=== PATIENT | male | born 1940 | race Caucasian/White ===

== ENCOUNTER → 2016-08-19 | Outpatient (CLI) | payer MEDICARE, OTHER ==
[~2016-08-19] MED LIST: ANTIVERT **IA12.5 MG PO; ASPIRIN LO-DOSE81 MG PO; ATIVAN 0.5MG0.5 MG PO; COLACE100 MG PO; CORDARONE,PACE200 MG PO; COREG6.25 MG PO; COZAAR50 MG PO; HYDROCHLOROTH12.5 MG; LASIX40 MG PO; LIPITOR40 MG PO; MILK OF MAGN400 ML PO; NITROGLYCERIN0.4 MG; NORVASC10 MG; OMEGA-31000 MG PO; PLAVIX75 MG PO; POTASSIUM CHLO20 ME1 PO; PRILOSEC20 MG PO; TYLENOL PM EX-1 EACH PO; TYLENOL325 MG PO; ULTRAM50 MG PO; VITAMIN D-32000 UNI1 PO
[2016-08-19 17:20] LABS: ANION GAP 16.4 (10.0-19.0); CALCIUM 9.1 mg/dL (8.5-10.5); CREATININE 1.3 mg/dL (0.6-1.3); MAGNESIUM 2.3 mg/dL (1.8-2.6); PHOSPHORUS 2.3 mg/dL (2.5-4.9); POTASSIUM 3.4 mMol/L (3.7-5.1)
== END | disposition disaster alternative care site (69) ==
LOC: LCNC 16:31
PROVIDERS: Internal Medicine Interventional Cardiology
DX: I49.3 Ventricular premature depolarization (principal)

== ENCOUNTER 2016-08-29 14:02 | Inpatient (IN) | payer MEDICARE, OTHER ==
[~2016-08-29] VITALS: Ht 170.2 cm; Wt 78.3 kg
--- NOTE | ~2016-08-29 | OR ---
PATIENT'S NAME: NATALIE LOUISE [facility] AGE: 76 Y [address] ROOM: [address] [address] LOCATION: GPCU ADMIT DATE: 08/29/2016 OR/Procedure Report DISCHARGE DATE: 09/05/2016 FAMILY PHYSICIAN: Arturo Saucedo MD ATTENDING PHYSICIAN: Nevaeh Mccollum SURGEON: Mike Hopkins DO CHECKER DUMP GROUNDS: DATE OF PROCEDURE: 09/01/2016 PREOPERATIVE DIAGNOSES: 1. Recent ST-segment elevation myocardial infarction, status post angioplasty of the right coronary artery. 2. Multivessel coronary artery disease. 3. Preoperatively existing coagulopathy secondary to anticoagulation therapy. POSTOPERATIVE DIAGNOSES: 1. Recent ST-segment elevation myocardial infarction, status post angioplasty of the right coronary artery. 2. Multivessel coronary artery disease. 3. Preoperatively existing coagulopathy secondary to anticoagulation therapy. PROCEDURE PERFORMED: Coronary artery bypass grafting x3 with reverse saphenous vein graft to the posterior descending artery, reverse saphenous vein graft to the obtuse marginal artery, and a left internal mammary artery bypass to the left anterior descending artery. BRIEF HISTORY: Mr. Louise is a 76-year-old white male who was admitted through the ER on 08/[address]-segment myocardial infarction. He was taken as code STEMI to the landscape laborer where his right coronary artery was intervened upon. However, secondary to the marked tortuosity of the vessel and calcification, only an angioplasty could be performed. Given that this same scenario happened 2 times previously including June of this year, we have been asked to see him in regard to revascularization. Catheterization has also shown moderately severe LAD disease approximately 60% to 70% and obtuse marginal with the same percentage. DESCRIPTION OF PROCEDURE: Informed consent has been obtained, and he has been brought to the operative suite today, sterilely prepped and draped in the usual fashion for median sternotomy along with lower extremity vein harvest. A sternal incision was made, and the sternum was divided in the midline with a sternal saw. Ostene and electrocautery were used for hemostasis along the marrow and sternal edges, and concurrently to this, the saphenous vein was harvested endoscopically from the lower extremity. A sternal retractor was PATIENT'S NAME: NATALIE LOUISE [facility] AGE: 76 Y [address] ROOM: [address] [place], [place] [address] LOCATION: GPCU ADMIT DATE: 08/29/2016 OR/Procedure Report DISCHARGE DATE: 09/05/2016 FAMILY PHYSICIAN: Arturo Saucedo MD ATTENDING PHYSICIAN: Nevaeh Mccollum placed, and the pericardium was opened. We had initially hoped to do bilateral internal mammary artery harvest given the somewhat mid proximal stenosis in the right coronary artery; however, the artery was completely calcified onto the inferior diaphragmatic surface of the heart, and I did not feel that as an in situ graft the CANDELARIA would reach. Therefore, the sternal retractor was removed, mammary retractor was placed, and the left internal mammary artery was harvested in standard fashion. Prior to its division, the patient was fully heparinized. The mammary was then divided and prepared for bypass. Mammary retractor was removed, and a sternal retractor was placed. Pericardium was opened, pericardial well was created, and cannulation sutures were placed in the ascending aorta and right atrium for bypass and cardioplegia cannulas. The patient was then cannulated and connected to the bypass pump without difficulty. The vein was then prepared for bypass. Cardiopulmonary bypass was initiated, and a crossclamp was applied. Antegrade and retrograde cardioplegia was given along with topical cold saline for cardiac arrest, and the heart arrested without difficulty. The right coronary artery had been previously identified, and we went on to the surface of the posterior descending artery where this artery was free of significant calcification. It was opened here and end-to-side vein graft anastomosed to this with 7-0 Prolene. It was sized appropriately and connected to cardioplegia system, and 500 mL of vein graft and retrograde cardioplegia was given. This was done after each venous distal anastomosis. A similar venous distal anastomosis was then created to the obtuse marginal, and then the left internal mammary artery was anastomosed to the left anterior descending artery again in end-to-side fashion with 7-0 Prolene. With this complete, the bulldog was removed from the internal mammary artery showing good distal flow into the left anterior descending artery as well as an intact anastomosis. The crossclamp was now removed, and a partial occlusion clamp was applied. Warm blood was initiated via the vein grafts and the retrograde cannula. The bulldog had been removed from the LAD, and distal flow was going. Spontaneous sinus rhythm returned. Our proximal anastomoses were then completed with 4-0 punch and 6-0 Prolene. When this was completed, the partial occlusion clamp was removed, the vein grafts de-aired, bulldog was removed, and distal flow was given. Warm blood was now discontinued, and the retrograde cannula was removed. Distal sites were hemostatic. Proximal sites were hemostatic. Ventilations were initiated, and we weaned from cardiopulmonary bypass without difficulty. The venous cannula was now removed, and appropriate volume returned from the pump to the patient. The ascending aortic cannula was now removed, and protamine was given. Two atrial and one ventricular temporary pacemaking wires were placed. Three chest tubes, one left pleural, one posterior pericardial, and one anterior mediastinal were placed, and the sternum was approximated with sternal cable system. All sponge, instrument, and needle counts were correct, and the patient was transferred to the intensive care unit in stable condition. PATIENT'S NAME: NATALIE LOUISE [facility] AGE: 76 Y [address] ROOM: [place] [address] LOCATION: GPCU ADMIT DATE: 08/29/2016 OR/Procedure Report DISCHARGE DATE: 09/05/2016 FAMILY PHYSICIAN: Arturo Saucedo MD ATTENDING PHYSICIAN: Nevaeh Mccollum MIKE HOPKINS DO MCB/modl /[id number] CC: Nevaeh Mccollum MD d: 09/13/16 1431 t: 09/15/16 1515, OPERATIVE SUMMARY
--- NOTE | ~2016-08-29 | HP ---
PATIENT'S NAME: NATALIE LOUISE [facility] AGE: 76 Y [address] ROOM: [place] [address] LOCATION: GICU ADMIT DATE: 08/29/2016 History & Physical DISCHARGE DATE: FAMILY PHYSICIAN: MAYI BALTAZAR MD ATTENDING PHYSICIAN: Nevaeh Mccollum DATE OF SERVICE: 08/29/2016 This is a 76-year-old male patient of Dr. Muller. INDICATION: Acute inferior wall IA. HISTORY OF PRESENT ILLNESS: Mr. Louise is a 76-year-old male patient with known coronary artery disease. He has not had a history of an IA before. He had at least 4 stents according to him. His last catheterization in 2009 resulted in difficulty passing stents down his right coronary artery. Currently, he presents with 1 hour history of precordial chest pain, and an EKG in the emergency room that is consistent with acute inferior wall IA. He currently rates the pain at 4-5 on a scale of 1-10. He has had a similar pain about 2 weeks ago, and it spontaneously resolved. He has had a few other pains after that and had a monitor placed by Dr. Muller, who did not find anything significant on the monitoring. He has been in functional class II with no paroxysmal nocturnal dyspnea or orthopnea. He has occasional lightheadedness. He denies dizziness, syncope, or presyncope. He feels occasional skipped heartbeats, and he does have some ankle swelling. The patient has a history of hypertension and elevated cholesterol. He is not a diabetic and he quit smoking 40 years back. There is no family history of premature coronary artery disease. There is no prior history of IA. There is no prior history of congestive heart failure, rheumatic fever, heart murmur, or atrial fibrillation. MEDICATIONS: See list of medications. ALLERGIES: THE PATIENT HAS HAD SOME SKIN RASHES WITH CONTRAST. PAST MEDICAL HISTORY: History of spinal surgery. PATIENT'S NAME: NATALIE LOUISE [facility] AGE: 76 Y [address] ROOM: [place] [address] LOCATION: GICU ADMIT DATE: 08/29/2016 History & Physical DISCHARGE DATE: FAMILY PHYSICIAN: MAYI BALTAZAR MD ATTENDING PHYSICIAN: Nevaeh Mccollum SOCIAL HISTORY: He denies abusing alcohol. His appetite and weight are stable. Sleep is normal. FAMILY HISTORY: Positive for premature coronary artery disease. REVIEW OF SYSTEMS: A 12-point review of systems reveal corrective lenses and DJD. PHYSICAL EXAMINATION: VITAL SIGNS: On examination, his blood pressure is 120/80, heart rate is in the 80s and regular, respirations 18, afebrile. HEENT: Normal. NECK: Supple. No JVD, thyromegaly, lymphadenopathy, or carotid bruit. HEART: PMI is not well located. First and second heart sounds are regular. There are no added sounds or murmurs. CHEST: Clear to auscultation. ABDOMEN: Soft and nontender. EXTREMITIES: Reveal no edema. CENTRAL NERVOUS SYSTEM: Intact. ASSESSMENT: A 76-year-old male patient with hypertension, elevated cholesterol, and he is an ex-smoker. He has also family history of premature coronary artery disease. He presents with acute inferior wall myocardial infarction. RECOMMENDATIONS: Proceed with primary PTCA. MD RONNIE LAYTON/keynaa /[id number] D: [id number] T: 350 HISTORY & PHYSICAL
--- NOTE | ~2016-08-29 | HP ---
PATIENT'S NAME: NATALIE LOUISE [facility] AGE: 76 Y [address] ROOM: [place] [address] LOCATION: [facility] ADMIT DATE: 08/29/2016 History & Physical DISCHARGE DATE: FAMILY PHYSICIAN: MAYI BALTAZAR MD ATTENDING PHYSICIAN: Nevaeh Mccollum DATE OF SERVICE: CLINICAL UPDATE: Natalie Louise has been seen by me today, 09/01/2016. He was admitted a couple days ago with chest pain and has had an acute STEMI. He was taken to the builder's labourer and found to have a 90% lesion in his right coronary artery that could not be addressed with stent placement during his heart catheterization. It has been elected and he will proceed to the operating room later today for single- vessel coronary bypass graft per Dr. Mike Mccarthy. Dr. Mccarthy called me the day of the patient's admission. The patient was admitted, of course, to the intensive care unit. I reviewed the chart, told Dr. Mccarthy, I would follow along from social standpoint until this patient saw an acute need for cardiac services. I also explained that to the patient and his with the management of their case and treatment plan would be per the assistant golf coach and Dr. Mccarthy, and I would take over the care as things become less intense. ASSESSMENT: 1. Chest pain. 2. ST-segment elevation myocardial infarction. 3. Single-vessel coronary artery disease, critical. PLAN: As above. MAYI BALTAZAR MD SUPERVISOR CONTACT [employer]ENS/modl /[id number] D: [id number] T: HISTORY & PHYSICAL
--- NOTE | ~2016-08-29 | PUL ---
PATIENT'S NAME: NATALIE LOUISE [facility] AGE: 76 Y [address] ROOM: [place] [address] LOCATION: GICU ADMIT DATE: 08/29/2016 Pulmonary DISCHARGE DATE: FAMILY PHYSICIAN: MAYI BALTAZAR MD ATTENDING PHYSICIAN: Nevaeh Mccollum NAME OF PROCEDURE: Bedside Spirometry DATE OF PROCEDURE: August 29, 2016 TECH: VINNIE Quevedo REASON FOR EXAM: Pre-surgical evaluation RESULTS: FVC was 3.57 liters which is 96% of predicted and normal, FEV1 was 2.76 liters which is 103% of predicted and normal, and FEV1/FVC was 77.3% and normal. The flow volume curve did not reveal any significant airflow limitation. After bronchodilator administration FVC decreased to 3.08 liters and FEV1 decreased to 2.51 liters. FEV1/FVC was 81.8%. PHYSICIAN INTERPRETATION: The patient has no airflow limitation and no significant bronchodilator response. JAYSON CARRASQUILLO MD RFAylin/ks /[id number] dtt: 09/02/16 1023 , JAYSON CARRASQUILLO dtd: 09/02/16 0857
--- NOTE | ~2016-08-29 | CATH ---
Cardiac Diagnostic + PCI Report Demographics Patient Name ASPEN Vasquez Gender Male Date of 1940 Age 76 year(s) Patient Number [id number] Date of Study 08/29/2016 Visit Number [id number] Room Number G[address] [place] [id number] Ht 170.18 cm Wt 77.2 kg Referring Chun Primary Physician Physician Nevaeh CHÁVEZ Performing Chun Secondary Physician Physician Nevaeh CHÁVEZ Diagnostic Chun Assisting Physician Physician Nevaeh CHÁVEZ Interventional Chun Physician Colorist Photography Physician Nevaeh CHÁVEZ Findings and Conclusions Diagnostic Findings and Conclusion Acute inferior wall CT Diagnostic Recommendations PCI RCA Interventional Findings and Conclusion PTCA 3x15 mm balloon 90%-75% Due to tortuosity and really calcified RCA stent could not be advanced Interventional Recommendations Consult CTS in AM Procedure Description The patient was brought to the diagnostic cardiac catheterization-EP laboratory in the fasting, non-sedated state. Informed consent was obtained in the written and verbal form after the risks and benefits were explained. The patient had no further questions and agreed to proceed. The planned puncture-incision site(s) were shaved and prepped with ChloraPrep and draped in the usual sterile manner. Supplemental oxygen, and pain control medications were delivered by a registered nurse under physician guidance. Surface ECG rhythm, blood pressure measurement, and pulse oximetry were monitored throughout the procedure. Arterial access. The access site was infiltrated with lidocaine. The vessel was entered with the Seldinger technique. A sheath was advanced into the vessel and used for catheter placement. Selective left coronary angiography. A catheter was advanced into the left coronary vessel ostium under Fluoroscopic guidance. Contrast was injected by hand. Images were obtained in multiple projections. Selective right coronary angiography. A catheter was advanced into the right coronary vessel ostium under fluoroscopic guidance. Contrast was injected by hand. Images were obtained in multiple projections. Angioplasty: A guiding catheter was used to intubate the vessel. A 0.14 wire was used to cross the lesion. A balloon was positioned across the lesion and inflated. Post placement angiograms were performed. Arterial artery hemostasis was achieved. The patient was transferred to the ICU nursing floor via cart accompanied by a nurse. The patient left the laboratory in stable condition. Diagnostic Cath Status: Emergency Interventional Cath Status: Emergency Procedure Procedure Type Diagnostic procedure:Angiography:, Coronary Angios PCI procedure:Drug Eluting Coronary Stent:, RCA, Attempted, PTCA:, RCA Indications: Abnormal ECG. Angiographic Findings Dominance: Right Cardiac Arteries and Lesion Findings LMCA: Luminal irregularities LAD: LAD moderate diffuse disease Lesion on Prox LAD: Proximal subsection.20% stenosis . LCx: Circ moderate diffuse disease Lesion on Prox CX: Proximal subsection.20% stenosis . RCA: RCA large dominant. Heavily calcified. Mid to distal 90% post 70% with haziness. Lesion on Mid RCA: Mid subsection.90% stenosis 16 mm length reduced to 70%. Pre procedure CHAVO III flow was noted. Post Procedure CHAVO III flow was present. The guidewire cross was successful.The lesion was diagnosed as a high risk lesion.Culprit lesion. Devices used - Luge Wire .014 x 182. Number of passes: 1. - Luge Wire .014 x 182. Number of passes: 1. - Emerge Balloon 3.0 x 15. 1 inflation(s) to a max pressure of: 14 lucius. - Grand Slam Wire 0.14 x 180. Number of passes: 1. - Whisper Extra Support Wire .014 x 190. Number of passes: 1. - Whisper Extra Support Wire .014 x 190. Number of passes: 1. Coronary Tree Procedure Data Procedure Date Date: 08/29/2016Start: 02:27 PMEnd: 04:54 PM Entry Locations - Percutaneous access was performed through the Right Femoral artery (Primary location). A 7 Fr sheath was inserted. Hemostasis was successfully obtained using Suture. Closure Comments: Sheath sutured in place by Radha. Procedure Medications Order and Administration + + + + + !Time !Medication !Dosage !Route ! + + + + + !08/29/2016 02:27 PM !Solumedrol !125 mg !I.V. ! + + + + + !08/29/2016 02:27 PM !Benadryl !25 mg !I.V. ! + + + + + !08/29/2016 02:29 PM !Integrilin (ACC_7) !13.6 mg !I.V. bolus ! + + + + 08/29/2016 02:30 PM !Heparin (ACC_3) !8000 units !I.V. bolus ! + + + + + 08/29/2016 02:37 PM !Fentanyl !25 mcg !I.V. ! + + + + + !08/29/2016 02:39 PM !Integrilin (ACC_7) !13.6 mg !I.V. bolus ! + + + + + !08/29/2016 02:43 PM !Integrilin (ACC_7) !1 mcg/kg/min !I.V. bolus ! + + + + + !08/29/2016 02:53 PM !0.9% NaCl !125 ml !I.V. drip ! + + + + + 08/29/2016 03:42 PM !Heparin (ACC_3) !1000 units !I.V. bolus ! + + + + + 08/29/2016 04:11 PM !Fentanyl !25 mcg !I.V. ! + + + + + !08/29/2016 04:39 PM !Plavix (ACC_8) !300 mg !P.O. ! + + + + + Devices Used - A6 Fr. BS JL 4 Diag. Catheterwas used for:Left coronary angiography. - A6 Fr. BS JR 4 Diag. Catheterwas used for:Right coronary angiography. - A6 Fr. JR4 Guide Catheterwas used for:RCA Intervention. - A6 Fr. AL .75 JJ Guide Catheterwas used for:RCA Intervention. - A6 Fr. Guidlinerwas used for:RCA Intervention. - A6 Fr. AL1 Guide Catheterwas used for:RCA Intervention. - A7 Fr. AL1 Guide Catheterwas used for:RCA Intervention. - A6 Fr. Guidliner. Contrast Material - Isovue [id number] ml Fluoroscopy Time: Diagnostic: 53:42 minutes. Total: 53:42 minutes. Fluoroscopy Dose: Diagnostic: 5169 mGy. Total: 5169 mGy. Estimated Blood Loss: [address] [facility] PCI Information PCI Indication:Immediate PCI for STEMI. Medical History Performed Procedures and Imaging Results - No [facility] stress or imaging studies were performed. Allergies - Iodine. Risk Factors The patient risk factors include:prior PCI;hypercholesterolemia, hypertension, family history of premature CAD and dyslipidemia. Admission Data Admission Date: 08/29/2016 Admission Time: 02:17 PM Admit Source: Emergency department Insurance Payors: Medicare. Clinical Evaluation Leading to Procedure - The patient's CAD presentation was assessed as: STEMI. Hemodynamics Condition: Rest Estimated: Heart Rate: 71 bpm Pressures (mmHg) +-----+ + !Site !Pressure ! +-----+ + !AO !135/63 (92) ! +-----+ + Shunts Oxygen Values O2 Capacity 223.04 Signatures dtt: Nevaeh Mccollum dtd: 08/29/16 1427 Physician Self Edit
--- NOTE | ~2016-08-29 | CON ---
PATIENT'S NAME: NATALIE LOUISE [facility] AGE: 76 Y [address] ROOM: [address] [place] [address] LOCATION: GPCU ADMIT DATE: 08/29/2016 Consultation DISCHARGE DATE: FAMILY PHYSICIAN: MAYI BALTAZAR MD ATTENDING PHYSICIAN: Nevaeh Mccollum DATE OF CONSULTATION: 08/30/2016 REFERRING PHYSICIAN: Nevaeh Mccollum MD REASON FOR CONSULTATION: Coronary artery disease/inferior wall myocardial infarction. HISTORY OF PRESENT ILLNESS: The patient is a 76-year-old white male, a cardiology patient of Dr. Muller, with a previous history of coronary artery disease, who had been out golfing when he started to experience chest pain. He continued to golf for an additional hour and then excused himself and drove himself to the emergency department where he was found to be a code STEMI. The patient had previously been experiencing intermittent chest pain. This started approximately 2 weeks ago. He had been evaluated but because of the chest pain had not been identified. The patient was taken to the catheterization lab by Dr. Mccollum. There was an attempt to intervene to the RCA. The vessels were highly torturous and possibly calcific throughout. There was some remediation to the RCA which helped with the chest pain. Dr. Mccollum discussed surgical revascularization as a better option given the patient's vessels. The patient was therefore transferred to the progressive care floor for surgical consultation. The case was discussed with Dr. Muller as well. The patient had undergone an echocardiogram with findings of an ejection fraction at 60%. There was no valvular abnormalities identified. PAST MEDICAL HISTORY: ILLNESSES: Hypertension, coronary artery disease, dyslipidemia, osteoarthritis, and GERD. SURGERIES/PROCEDURES: Percutaneous intervention with stent, multiple cardiac catheterization, spine surgery with X-stop spacer placement to the lumbar spine and a tonsillectomy, also a colonoscopy. ALLERGIES: CONTRAST DYE WHICH CAUSES A RASH. 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 He is . He and his reside in [place]. The patient does not consume alcohol. He has a remote smoking history, approximately a pack a day habit but quit 35 years PATIENT'S NAME: NATALIE LOUISE [facility] AGE: 76 Y [address] ROOM: [id number] [place], [place] [address] [facility]ATION: [facility] ADMIT DATE: 08/29/2016 Consultation DISCHARGE DATE: FAMILY PHYSICIAN: MAYI BALTAZAR MD ATTENDING PHYSICIAN: Nevaeh Mccollum. FAMILY HISTORY: His father from a myocardial infarction at age 67. His mom from complications with valvular heart disease. He has a sister who had breast cancer. HOME MEDICATIONS: Include, 1. Tylenol p.m. two tablets q.h.s. p.r.n. insomnia. 2. Norvasc 10 mg daily. 3. Aspirin 81 mg at h.s. 4. Lipitor 20 mg at h.s. 5. Carvedilol 6.25 mg b.i.d. 6. Vitamin D3 2000 units daily. 7. Hydrochlorothiazide 12.5 mg daily. 8. Lorazepam 0.5 mg q.8 hours p.r.n. anxiety. 9. Cozaar 50 mg daily. 10. Nitroglycerin 0.4 mg subcu p.r.n. chest pain. 11. Shelley-3 fatty acids 1000 mg p.o. daily. 12. Omeprazole 20 mg daily. 13. Potassium chloride 20 mEq daily. SYSTEM REVIEW: GENERAL: The patient has not had any recent change in weight or appetite. No fever, chills, or sweats. No excessive fatigue. HEENT: Does have some age-related vision changes. Does wear glasses. No hearing complaints. No difficulty swallowing, change in voice, or hoarseness. RESPIRATORY: No unusual cough, wheezing, history of asthma. No complaints of PND, OTERO, or orthopnea. CARDIOVASCULAR: The patient did start having some unusual chest discomfort approximately 2 weeks ago. He did wear a monitor. There were no unusual findings. No complaints of palpitation. No intermittent claudication. He does have some occasional ankle edema. GI: No persistent nausea, vomiting, constipation, or diarrhea. Does have GERD and does take medication. : No voiding complaints. MUSCULOSKELETAL: The patient is highly active. He has generalized arthritis. He does not require ambulatory devices. NEUROLOGIC: No frequent or severe headaches. No history of seizure, memory loss, or syncope. He does occasionally experience some lightheadedness. PSYCHIATRIC: No psychiatric or psychiatric treatment history. ENDOCRINE: No history of diabetes or thyroid conditions. INTEGUMENT: No known skin diseases. PATIENT'S NAME: NATALIE LOUISE [facility] AGE: 76 Y [address] ROOM: [id number] [place], [place] [address] LOCATION: [facility] ADMIT DATE: 08/29/2016 Consultation DISCHARGE DATE: FAMILY PHYSICIAN: MAYI BALTAZAR MD ATTENDING PHYSICIAN: Nevaeh Mccollum PHYSICAL EXAMINATION: VITAL SIGNS: Blood pressure 141/76, pulse is 89, respirations 18, temp 97.9, O2 saturations 93%. His height is 170.18 cm and his weight is 77.40 kg. GENERAL: He is very pleasant. He is highly anxious. His is present for the consultation. HEENT: Normocephalic, atraumatic with EOMIs intact and conjunctivae clear. NECK: No palpable lymphadenopathy or thyromegaly. LUNGS: Clear to auscultation bilaterally. CARDIOVASCULAR: Regular rate and rhythm with no murmur detected. ABDOMEN: Soft, nontender by 4 quadrants with positive bowel sounds throughout. EXTREMITIES: No overt varicosities or edema. MUSCULOSKELETAL: Good range of motion of bilateral upper and lower extremities. NEUROLOGIC: Alert and oriented. Strength is symmetrical. SKIN: No suspicious skin lesions. LABORATORY AND TEST RESULTS: White blood cell count 14.3, hemoglobin 14.6, hematocrit 42.4, and platelets 225. Sodium 142, potassium 3.9, BUN 20, creatinine 1.4. Glucose is 142. Echo and cardiac catheterization are as per HPI. IMPRESSION: 1. Inferior wall myocardial infarction. 2. Coronary artery disease. 3. Hypertension and dyslipidemia. RECOMMENDATION AND PLAN: Dr. Hopkins reviewed the catheterization studies with the patient and his . Outlined were the culprit lesions and discussion for remediation. Risks and benefits of coronary artery bypass grafting surgery were discussed. Discussion of the risks includes, but were not limited to, bleeding, requiring transfusion or return to the operative suite, myocardial infarction, cerebrovascular accident, renal and/or pulmonary failure. Also discussed were arrhythmias and infection as well as operative and postoperative mortality. Dr. Hopkins did discuss, perhaps if possible, utilizing the CANDELARIA to the RCA and does expect to use the REAGAN to the LAD and a saphenous vein graft to the obtuse marginal, for a total of three vessel bypass. The patient does consent to the procedure. Does have a lot of concerns about the recovery period thereafter. Length of stay and restrictions following the surgery were discussed as well. The patient does consent to surgery and we will plan for a preoperative evaluation tomorrow morning with this surgery to be performed on September 01, 2016. We would like to thank Dr. Mccollum and Dr. Muller for allowing us to participate in the care of this very pleasant gentleman. PATIENT'S NAME: NATALIE LOUISE [facility] AGE: 76 Y [address] ROOM: [place] [address] LOC[facility]: [facility] ADMIT DATE: 08/29/2016 Consultation DISCHARGE DATE: FAMILY PHYSICIAN: MAYI BALTAZAR MD ATTENDING PHYSICIAN: Nevaeh Mccollum LISA OTERO APRN FOR RIA HOPKINS DO DLQ/felecial /[id number] d: 08/31/16 1332 t: 09/12/16 1324, CONSULTATION REPORT
--- NOTE | ~2016-08-29 | ECHO ---
Transthoracic Echocardiography Report (TTE) Demographics Patient Name NATALIE LOUISE Date of Study 08/30/2016 Patient Number [id number] Visit Number [id number] Date of 1940 Room Number G6204 Gender Male Number Age 76 year(s) Referring Chun Herring Crop Consultant Saúl Anton RDCS, Physician RVT Lewis Vasquez MD Physician Interpreting Chun Herring Spin Table Operator Physician Supervising Ordering Chun Herring MD/MLP Physician Nurse Stress Fisher Clam Conclusions Contractility Score Summary Normal Left Ventricular contractility was noted. Summary The estimated left ventricular ejection fraction is 60% with normal internal dimension and EF.WMAs cannot be confidently commented on. No significant valvular abnormalities. TDS. Procedure Type of Study TTE procedure:2D Echocardiogram. Procedure Date Date: 08/30/2016 Start: 10:30 AM Study Location: Inpatient Portable Technical Quality: Adequate visualization Indications:Myocardial infarction. Appropriate Use Criteria: 9 Patient Status: Routine BP: 146/74 mmHg Allergies - Iodine. M-Mode/2D Measurements LV Diastolic Dimension: 4.31 cm LV Systolic Dimension: 2.04 cm LV Septum Diastolic: 0.85 cm LV PW Diastolic: 0.85 cm LA Dimension: 3 cm RV Diastolic Dimension: 2.72 cm LA volume: 40 ml LVOT: 2.1 cm RV Base: 2.91 cm LVOT VTI: 27.4 cm RV Mid: 2.63 cm LV Stroke volume: 94.85 ml TAPSE: 2.71 cm TDI-S': 14.4 cm/s Doppler Measurements AV Peak Velocity: 1.39 m/s MV Peak E-Wave: 0.71 m/s AV Peak Gradient: 7.73 mmHg MV Peak A-Wave: 0.88 m/s AV Mean Gradient: 5 mmHg MV E/A Ratio: 0.81 LVOT Peak Velocity: 1.15 m/s MV P1/2t: 111 msec Estimated RAP:5 mmHg E' Septal Velocity: 0.06 m/s A' Septal Velocity: 0.14 m/s E' Lateral Velocity: 0.1 m/s A' Lateral Velocity: 0.16 m/s Findings Left Ventricle The left ventricle is normal in size.Normal EF.WMAs cannot be confidently commented on.LV internal dimension is normal. Diastolic assessment reveals Grade I diastolic dysfunction. Right Ventricle Normal right ventricle structure and function. Left Atrium Normal left atrial size. Right Atrium Normal right atrial size. Mitral Valve Normal mitral valve structure and function. Aortic Valve Normal aortic valve structure and function. Tricuspid Valve Normal tricuspid valve structure and function. Pulmonic Valve The pulmonic valve is not well visualized. Pericardial Effusion No evidence of pericardial effusion. Miscellaneous Visualized portions of the aortic root and ascending aorta appear normal in size. Pleural Effusion No evidence of pleural effusion. Contractility Score LV regional wall motion:(0-Non visualized 1-Normal 2-Hypokinesis 3-Akinesis 4-Dyskinesis 5-Aneurysm) Signature dtt: Nevaeh Mccollum dtd: 08/30/16 1030 Physician Self Edit
--- NOTE | ~2016-08-29 | OR ---
PATIENT'S NAME: NATALIE LOUISE [facility] AGE: 76 Y [address] ROOM: [place] [address] LOCATION: GICU ADMIT DATE: 08/29/2016 OR/Procedure Report DISCHARGE DATE: FAMILY PHYSICIAN: MAYI BALTAZAR MD ATTENDING PHYSICIAN: Nevaeh Mccollum SURGEON: Pranay José MD MIXED CROP AND LIVESTOCK FARM WORKER: None. DATE OF PROCEDURE: 09/01/2016 PROCEDURE: Intraoperative transesophageal echocardiogram. INDICATIONS FOR PROCEDURE: Need for visualization of cardiac structures and function prior to and immediately post coronary artery bypass grafting. PREOPERATIVE DIAGNOSES: 1. Multivessel coronary artery disease. 2. Hypertension. 3. Hyperlipidemia. 4. Remote history of tobacco use. POSTOPERATIVE DIAGNOSES: 1. Multivessel coronary artery disease. 2. Hypertension. 3. Hyperlipidemia. 4. Remote history of tobacco use. COMPLICATIONS: None noted. ESTIMATED BLOOD LOSS: Minimal. CONSENT: Informed consent was obtained preoperatively including discussed risks, benefits, and alternatives. Mr. Louise stated his understanding the above procedures risks, benefits, and alternatives and agreed for me to proceed. PROCEDURE IN DETAIL: After induction of anesthesia, the patient placed in supine position. Orogastric tube placed without difficulty through the patient's mouth, posterior pharynx, esophagus, and stomach. Suction and removed. No blood noted. An iE33 Edson transesophageal echocardiogram probe was then inserted through the patient's mouth, posterior pharynx, esophagus, and stomach without difficulty. Please see saved images for further analysis. Prebypass views do illustrate trileaflet aortic valve with mild aortic sclerosis. There is no aortic insufficiency identified. Aortic valve via the PATIENT'S NAME: NATALIE LOUISE [facility] AGE: 76 Y [address] ROOM: [place] [address] LOCATION: GICU ADMIT DATE: 08/29/2016 OR/Procedure Report DISCHARGE DATE: FAMILY PHYSICIAN: MAYI BALTAZAR MD ATTENDING PHYSICIAN: Nevaeh Mccollum continuity equation measures 3.26 cm2. The patient's ascending aorta maximally measures 3.7 cm. The patient has no interatrial shunt lesions noted via both Doppler and agitated saline study. No pulmonary valve insufficiency noted. There is trace tricuspid valve insufficiency noted. Right ventricular function appears to be normal. Left ventricular ejection fraction is 55%. No regional wall motion abnormalities are identified. Left atrial appendage is without thrombus. The patient does have moderate mitral regurgitation. There is grade 4 of the ascending aorta and grade 4 atheromatous disease of the descending aorta. There is no mobile plaques noted in either the ascending or descending aorta. There is trace pericardial effusion noted. Post bypass views do illustrate more hyperdynamic left ventricle and right ventricle. Left ventricular ejection fraction is approximately 65% to 70%. No regional wall motion abnormalities identified. Valvular function looks unchanged without a change in stenosis or regurgitation of any valve. There is to be a laminar flow above the ascending aorta. Atheromas disease does not appear to be changed to either postoperatively. There was no systolic anterior motion of mitral valve leaflet identified. At the end of the procedure, iE33 transesophageal echocardiogram probe was removed without difficulty. No blood noted on the probe in the patient's mouth. PRANAY JOSÉ MD RRS/modl /[id number] d: 09/01/16 1436 t: 09/02/16 1415, OPERATIVE SUMMARY
--- NOTE | ~2016-08-29 | ENPV ---
Vascular Lower Extremity Vein Mapping Procedure Demographics Patient Name NATALIE LOUISE Date of Study 08/31/2016 Patient Number [id number] Gender Male Date of 1940 Age 76 Visit Number [id number] Height 67 Accession Number [id number] Weight 170.2 Referring Chun Herring Interpreting Efraín Harrison MD Physician MD Physician Lewis Farias APRN Physician Ordering Physician Demarcus Farias Electrophysiology Technologist POST DOCTORAL FELLOW Deep Fryer Assembler Ninfa Pittman [facility] Conclusions Summary The right great saphenous vein was mapped an appears adequate for surgical use. The left great saphenous vein was mapped an appears adequate for surgical use from the groin to the knee. Procedure Type of Study: Veins:Lower Extremity Vein Mapping, Vein Mapping. Indications for Study:Pre-op CABG. Appropriate Use Criteria:9 Allergies - Iodine. Patient Status:Routine. Study Location:Inpatient Portable. Technical Quality:Adequate visualization. Risk Factors - The patient's risk factor(s) include: dyslipidemia and arterial hypertension. Signature dtt: SONIYA AGUILAR dtd: 08/31/16 1506 Physician Self Edit
--- NOTE | ~2016-08-29 | OR ---
PATIENT'S NAME: NATALIE LOUISE [facility] AGE: 76 Y [address] ROOM: [place] [address] LOCATION: GICU ADMIT DATE: 08/29/2016 OR/Procedure Report DISCHARGE DATE: FAMILY PHYSICIAN: MAYI BALTAZAR MD ATTENDING PHYSICIAN: Nevaeh Mccollum SURGEON: Wagner José MD FOURDRINIER MACHINE TENDER: Sunday Floyd RN. DATE OF PROCEDURE: 09/01/2016 PROCEDURES: 1. Left radial 20-gauge arterial line placement. 2. Right internal jugular central line, 9-Peruvian sheath placement. INDICATIONS FOR PROCEDURE: 1. Need for perioperative jyzr-dy-swlm blood pressure monitoring as well as frequent arterial blood gas analysis. 2. Need for central venous access for administration of fluid blood products central venous pressure monitoring. PREOPERATIVE DIAGNOSES: 1. Multivessel coronary artery disease with recent ST-elevation myocardial infarction. 2. Hypertension. 3. Hyperlipidemia. 4. Remote history of tobacco abuse. POSTOPERATIVE DIAGNOSES: 1. Multivessel coronary artery disease with recent ST-elevation myocardial infarction. 2. Hypertension. 3. Hyperlipidemia. 4. Remote history of tobacco abuse. COMPLICATIONS: None noted. ESTIMATED BLOOD LOSS: Minimal. CONSENT: Informed consent was obtained preoperatively including discussed risks, benefits, and alternatives. The patient stated his understanding of the above procedures risks, benefits, alternatives and agreed for me to proceed. DESCRIPTION OF PROCEDURE: In the preoperative area, the patient supine position right wrist supinated sterile prep with ChloraPrep 1% lidocaine subcutaneous tissues in a sterile fashion. Utilizing sterile technique, a 20- PATIENT'S NAME: NATALIE LOUISE [facility] AGE: 76 Y [address] ROOM: [place] [address] LOCATION: [facility] ADMIT DATE: 08/29/2016 OR/Procedure Report DISCHARGE DATE: FAMILY PHYSICIAN: MAYI BALTAZAR MD ATTENDING PHYSICIAN: Nevaeh Mccollum gauge Arrow catheter was used to cannulate the right radial artery, pulsatile blood flow a wire was advanced. However, hematoma was noted. Wire and needle removed intact. Pressure held. With unsuccessful cannulation of the right radial artery, the patient was taken the operating room in supine position. Left wrist supinated, sterile prep with ChloraPrep 1% lidocaine in the sterile fashion the subcutaneous tissues. Utilizing sterile technique, a 20-gauge arrow arterial catheter was used to cannulate the left radial artery on the first attempt under real-time ultrasound guidance. On the first attempt, pulsatile blood flow over a wire a 20-gauge Arrow catheter was inserted without difficulty. Wire and needle removed intact. Catheter de-aired and flushed with saline solution. Sterile occlusive Tegaderm dressing applied. Good correlation and noninvasive blood pressure monitoring. Patient tolerated the procedure well. Of note, the patient did have nitrous oxide and fentanyl sedation IV during the intraoperative radial arterial line placement. After induction of anesthesia, the patient placed in Trendelenburg position. Ultrasound for confirmation of right internal jugular venous anatomy. Sterile prep with ChloraPrep to right neck. Sterile full-body drape, sterile gown, sterile gloves used. Surgical mask and cap worn all time. Utilizing 16-gauge needle in a middle approach the right internal jugular vein was cannulated at first attempt without difficulty. Nonpulsatile blood flow. Dark blood aspirated over wire and a nine-Peruvian sheath was inserted 10 cm without difficulty. Wire and needle removed intact. Catheter sutured in place. Sterile occlusive Tegaderm dressing applied. MD MAY RAMAN/felecial /[id number] d: 09/01/16 1428 t: 09/02/16 1413, OPERATIVE SUMMARY
--- NOTE | ~2016-08-29 | ENPV ---
Carotid Duplex Study Demographics Patient Name NATAILE LOUISE Date of Study 08/31/2016 Patient Number [id number] Gender Male Date of 1940 Age 76 Visit Number [id number] Height 67 Accession Number [id number] Weight 170.2 Referring Chun Herring Natalia Harrison MD Physician MD Physician Lewis Farias APRN Physician Ordering Physician Demarcus Farias House Painter SAVANAH Cra Officer Ninfa Pittman [facility] Conclusions Summary The right internal carotid artery has mild, 1-39%, plaque and stenosis. The right vertebral artery is present with antegrade flow. The left internal carotid artery has mild, 1-39%, plaque and stenosis. The left vertebral artery is present with antegrade flow. Procedure Type of Study: Cerebral:Carotid, Carotid Doppler Bilateral. Indications for Study:Pre op heart valve surgery. Appropriate Use Criteria:9 Allergies - Iodine. Patient Status:Routine. Study Location:Inpatient Portable. Technical Quality:Adequate visualization. Risk Factors - The patient's risk factor(s) include: dyslipidemia and arterial hypertension. Velocities are measured in cm/s ; Diameters are measured in cm Carotid Right Measurements Carotid Left Measurements + +--------+--------+ + + + +--------+ --------+ + + !Location !PSV !EDV !Angle !%Stenosis ! !Location !PSV ! EDV !Angle !%Stenosis ! + +--------+--------+ + + + +--------+ --------+ + + !Prox CCA !78 !13 !44 ! ! !Prox CCA !93 ! 14 !60 ! ! + +--------+--------+ + + + +--------+ --------+ + + !Dist CCA !105 !21 !60 ! ! !Dist CCA !79 ! 17 !40 ! ! + +--------+--------+ + + + +--------+ --------+ + + !Prox ICA !90 !20 !44 ! ! !Prox ICA !74 ! !48 ! ! + +--------+--------+ + + + +--------+ --------+ + + !Mid ICA !84 !18 !44 ! ! !Mid ICA !80 ! 17 !48 ! ! + +--------+--------+ + + + +--------+ --------+ + + !Dist ICA !78 !16 !44 ! ! !Dist ICA !71 ! 20 !48 ! ! + +--------+--------+ + + + +--------+ --------+ + + !Prox ECA !103 ! !44 ! ! !Prox ECA !62 ! !40 ! ! + +--------+--------+ + + + +--------+ --------+ + + !Vertebral !34 ! !60 ! ! !Vertebral !44 ! !60 ! ! + +--------+--------+ + + + +--------+ --------+ + + !Subclavian !74 ! ! ! ! !Subclavian !102 ! ! ! ! + +--------+--------+ + + + +--------+ --------+ + + - There is antegrade vertebral flow noted on the right side. - There is antegrade verte bral flow noted on the left side. - Add'l Measurements:ICAPSV/CCAPSV 1.15.ICAEDV/CCAEDV 1.53. - Add'l Measurements:ICAPS V/CCAPSV 0.85.ICAEDV/CCAEDV 1.44. Impressions Right Impression There is a moderate degree of calcified plaque in the right carotid bifurcation . Left Impression Tortuous left internal carotid artery. Signature dtt: SONIYA AGUILAR dtd: 08/31/16 1437 Physician Self Edit
--- NOTE | ~2016-08-29 | DS ---
PATIENT'S NAME: NATALIE LOUISE [facility] AGE: 76 Y [address] ROOM: [address] [address] LOCATION: GPCU ADMIT DATE: 08/29/2016 Discharge Summary DISCHARGE DATE: 09/05/2016 FAMILY PHYSICIAN: Arturo Saucedo MD ATTENDING PHYSICIAN: Mike Hopkins HOSPITAL COURSE: The patient is a 76-year-old white male who presented to the emergency department with an inferior wall myocardial infarction. The patient has a history of coronary artery disease. He is the patient on record of Dr. Muller. Upon his admission to the emergency department, he went to the catheterization lab with Dr. Mccollum with angioplasty of the right coronary artery. The patient's vasculature was not amenable to coronary stents. He was found with 3-vessel disease. It was, therefore, recommended he undergo surgical revascularization. After discussion with the patient and his , the patient consented to undergo coronary artery bypass grafting x3 vessels with a reverse saphenous vein graft to the posterior descending artery, reverse saphenous vein graft to the obtuse marginal, and a left internal mammary artery bypass to the left anterior descending. The patient tolerated the surgery without complication. He transferred to the ICU following the procedure. He extubated within hours of the surgery again without complication. On postoperative day 1, the patient's lines and drips were discontinued. He transferred to the progressive care floor. While he was on the progressive care floor, he worked with cardiac rehab for reconditioning purposes. The patient did not have any healing complications. He had no runs of postoperative atrial fibrillation. He had an uneventful hospital course. He worked well with rehab. His nor the patient felt a desire to have any home care or skilled care following the patient's dismissal. The patient was found stable to discharge on September 05, 2016. Discharge orders include a cardiac-prudent diet. Activity levels as per the open heart surgery discharge summary which includes no pulling, pushing, or lifting anything heavier than 10 pounds until October 13, 2016. The patient will work with cardiac rehab on an outpatient basis. The patient is to have a cardiac-prudent diet. He is to follow up with Dr. Hopkins and Dr. Muller in 2 weeks on the same day. DISCHARGE MEDICATIONS: Include: 1. Lipitor 40 mg q.h.s. 2. Cozaar 50 mg daily. 3. Carvedilol 6.25 mg b.i.d. 4. Omeprazole 20 mg daily. 5. Aspirin 81 mg daily. 6. Tylenol PM 2 tablets at h.s. p.r.n. 7. Vitamin D3 at 2000 units daily. 8. Glennie-3 at 1000 mg daily. PATIENT'S NAME: NATALIE LOUISE [facility] AGE: 76 Y [address] ROOM: [place] [address] [facility] ADMIT DATE: 08/29/2016 Discharge Summary DISCHARGE DATE: 09/05/2016 FAMILY PHYSICIAN: Arturo Saucedo MD ATTENDING PHYSICIAN: Mike Hopkins 9. Potassium chloride 20 mEq daily. 10. Ativan 0.5 mg q.8 hours p.r.n. anxiety. 11. Amiodarone 200 mg b.i.d. 12. Lasix 40 mg q.a.m. 13. Milk of magnesia 30 mL orally daily p.r.n. 14. Ultram 50 mg q.8 hours p.r.n. 15. Colace 100 mg twice a day. The patient and verbalized understanding of the discharge orders. The patient is discharged to home in stable condition. LISA OTERO APRN FOR MIKE HOPKINS DO DLQ/modl /[id number] d: 09/21/16 1246 t: 09/26/16 1043, DISCHARGE SUMMARY
--- NOTE | ~2016-08-29 | ER ---
PATIENT'S NAME: NATALIE LOUISE [facility] AGE: 76 Y [address] ROOM: [place] [address] LOCATION: GPCU ADMIT DATE: 08/29/2016 ER/Outpatient Report DISCHARGE DATE: FAMILY PHYSICIAN: MAYI SAUCEDO MD ATTENDING PHYSICIAN: Nevaeh Mccollum Time of arrival: 1402 hours. Time of evaluation: 1403 hours. CHIEF COMPLAINT: Chest pain. HISTORY OF PRESENT ILLNESS: The patient is a 76-year-old male, who presents to the emergency department today chief complaint of chest pain. He [place] when he developed chest pain. It occurred about 1 hour prior to arrival. He reports it is an achy type pain in the center of his chest. No radiation. No ripping or tearing sensation. The patient became very diaphoretic. No shortness of breath. No nausea or vomiting. He does report the pain is moderate in severity at this time. The patient does report he has been seeing Dr. Muller for recent chest pains. PAST MEDICAL HISTORY: 1. Hypertension. 2. Dyslipidemia. 3. Denies any CHF, diabetes, COPD, emphysema, or asthma. PAST SURGICAL HISTORY: Stents as well as the implantation of the spine. SOCIAL HISTORY: The patient denies any tobacco, alcohol, or illicit drug use. ALLERGIES: TO AN IV CONTRAST DYE, WHICH DID CAUSE A MILD RASH SHE REPORTS. MEDICATIONS: Please see list. FINANCIAL INVESTIGATOR: Jonh Muller M.D. REVIEW OF SYSTEMS: All systems are reviewed by myself and negative with the exception of those discussed in HPI and past medical history. PATIENT'S NAME: NATALIE LOUISE [facility] AGE: 76 Y [address] ROOM: [address] [address] LOCATION: GPCU ADMIT DATE: 08/29/2016 ER/Outpatient Report DISCHARGE DATE: FAMILY PHYSICIAN: MAYI SAUCEDO MD ATTENDING PHYSICIAN: Nevaeh Mccollum PHYSICAL EXAMINATION: VITAL SIGNS: Weight 77.2 kg, blood pressure 114/65, pulse 95, respiratory rate 20, temperature 97.1, oxygen saturation 97% on room air, and blood pressure 114/65. GENERAL: The patient is a 76-year-old male, who appears stated age. Well developed and well nourished, in acute distress. Diaphoretic. HEENT: Normocephalic and atraumatic. Pupils are equal, round, and reactive to light. Oropharynx is clear. NECK: Supple. No nuchal rigidity. CARDIOVASCULAR: Regular rate and rhythm. No murmurs, rubs, or gallops. LUNGS: Clear to auscultation bilaterally. No wheezes, rales, or rhonchi. ABDOMEN: Soft, nontender, and nondistended. No rebound, rigidity, or guarding. MUSCULOSKELETAL: The patient moves all 4 extremities. Ambulates to the room. SKIN: Pale and diaphoretic. LABORATORY DATA AND X-RAYS: EKG is obtained. It is interpreted by myself at 1404 hours. It does show ST elevation in 2 and 3 as well as some slight 0.[address]-elevation in AVF. There is some T-wave inversions noted in aVL. Otherwise, no ST elevation or ST depression is noted in the other leads. Intervals are normal. [place] is normal. IMPRESSION: 1. ST-elevation myocardial infarction. 2. Initial visit. EMERGENCY DEPARTMENT COURSE: The patient was brought back to the examination room. Seen and evaluated by myself immediately upon arrival. The STEMI is noted on the EKG. STEMI protocol is initiated. The patient did take aspirin prior to arrival. A code STEMI is called. I have discussed the case with Dr. Mccollum, who quickly presents to the emergency department, has seen and evaluated the patient. director of labor relations has presented. I have discussed with the patient that he is currently undergoing a heart attack and will require emergent heart catheterization. I have discussed the results of the EKG with the as well. Her questions are answered. I have called and discussed the results of the ED visit with the patient's primary care provider Dr. Saucedo. DISPOSITION: The patient is transferred emergently to the flower shop laborer/designer in stable condition. PATIENT'S NAME: NATALIE LOUISE [facility] AGE: 76 Y [address] ROOM: [place] [address] LOCATION: [facility] ADMIT DATE: 08/29/2016 ER/Outpatient Report DISCHARGE DATE: FAMILY PHYSICIAN: MAYI SAUCEDO MD ATTENDING PHYSICIAN: Nevaeh Mccollum DO KJAnitha/modl /[id number] d: 08/29/16 1523 t: 08/29/16 1615, OUTPATIENT REPORT
[~2016-08-29 14:02] MED LIST changes: -ATIVAN 0.5MG0.5 MG PO; -COLACE100 MG PO; -CORDARONE,PACE200 MG PO; -LASIX40 MG PO; -MILK OF MAGN400 ML PO; -OMEGA-31000 MG PO; -POTASSIUM CHLO20 ME1 PO; -ULTRAM50 MG PO; -VITAMIN D-32000 UNI1 PO
[2016-08-29 14:18] LABS: BASOPHIL % 0.3 %; EOSINOPHIL # 0.1 K/uL (0.0-0.5); EOSINOPHIL % 1.2 %; HEMATOCRIT 47.4 % (37.0-53.0); HEMOGLOBIN 16.4 g/dL (11.0-16.0); IMMATURE GRANULOCYTE % 0.2 %; LYMPHOCYTE % 30.3 %; MCH 30.9 pg (27.0-34.0); MCHC 34.6 gm/dL (32.0-36.5); MCV 89.4 fl (83.0-98.0); MONOCYTE # 0.9 K/uL (0.0-1.0); MONOCYTE % 8.9 %; MPV 9.3 fl (9.4-12.4); NEUTROPHIL # (ANC) 5.8 K/uL (1.4-9.0); NEUTROPHIL % 59.1 %; NRBC % 0 /100WBC (0-0.00); PLATELET COUNT 285 K/uL (150-450); RDW-CV 12.8 % (11.9-14.6); WBC 9.9 K/uL (4.0-11.0)
[2016-08-29 14:29] LABS: INR - (THERAPEUTIC) 0.99 (0.92-1.07); PROTIME 10.4 SECONDS (9.8-11.4); PTT 23 SECONDS (25-32)
[2016-08-29 14:38] LABS: ALBUMIN 4.5 gm/dL (3.5-5.0); ALK PHOS 74 IU/L (33-138); ALT 33 IU/L (12-78); BLOOD UREA NITROGEN 16 mg/dL (6-24); CALCIUM 10.2 mg/dL (8.5-10.5); CHLORIDE 113 mMol/L (96-110); CO2 22 mMol/L (22-32); CPK 195 IU/L (35-332); CREATININE 2.1 mg/dL (0.6-1.3); TOTAL BILIRUBIN 2.1 mg/dL (0.0-1.5); TOTAL PROTEIN 7.8 g/dL (6.0-8.4)
[2016-08-29 14:39] LABS: ANION GAP 15.4 (10.0-19.0); AST 30 IU/L (10-40); ESTIMATED GFR (MDRD EQUATION) 31; MAGNESIUM 2.4 mg/dL (1.8-2.6); POTASSIUM 4.4 mMol/L (3.7-5.1); SODIUM 146 mMol/L (135-145)
[2016-08-29] MEDS ORDERED: VITAMIN D-32000 UNI1 PO (19:54)
[2016-08-29] MEDS ORDERED: OMEGA-31000 MG PO (19:55)
[2016-08-29] MEDS ORDERED: POTASSIUM CHLO20 ME1 PO (19:56)
[2016-08-29] MEDS ORDERED: ATIVAN 0.5MG0.5 MG PO (19:56)
[2016-08-29 22:53] LABS: BASOPHIL % 0.1 %; HEMATOCRIT 42.4 % (37.0-53.0); HEMOGLOBIN 14.6 g/dL (11.0-16.0); IMMATURE GRANULOCYTE % 0.2 %; LYMPHOCYTE # 1.1 K/uL (0.8-4.0); LYMPHOCYTE % 11.4 %; MCH 30.7 pg (27.0-34.0); MCHC 34.4 gm/dL (32.0-36.5); MCV 89.3 fl (83.0-98.0); MONOCYTE # 0.1 K/uL (0.0-1.0); MONOCYTE % 0.6 %; MPV 9.3 fl (9.4-12.4); NEUTROPHIL # (ANC) 8.3 K/uL (1.4-9.0); NEUTROPHIL % 87.7 %; NRBC % 0 /100WBC (0-0.00); RBC 4.75 M/uL (3.50-5.50); RDW-CV 12.6 % (11.9-14.6); WBC 9.4 K/uL (4.0-11.0)
[2016-08-29 22:54] LABS: PLATELET COUNT 226 K/uL (150-450)
--- NOTE | 2016-08-30 02:56 | NUR ---
Significant Event: PATIENT A/OX3. FOLLOWS COMMANDS. CALM AND COOPERATIVE WITH CARES. HR'S 70'S-80'S. SBP 110'S-130'S. R)GROIN SHEATH PULLED AT 2004. SMALL HEMATOMA. CSM INTACT. AFEBRILE. RA O2 SATS >93%. VOIDS PER URINAL, 1600ML OUT. CARDIAC DIET. Follow up:CABG/ CONSULT WITH
[2016-08-30 05:04] LABS: BASOPHIL % 0.1 %; HEMATOCRIT 42.4 % (37.0-53.0); HEMOGLOBIN 14.6 g/dL (11.0-16.0); IMMATURE GRANULOCYTE # 0.1 K/uL (0.0-0.3); IMMATURE GRANULOCYTE % 0.3 %; LYMPHOCYTE # 1.2 K/uL (0.8-4.0); LYMPHOCYTE % 8.3 %; MCH 30.7 pg (27.0-34.0); MCHC 34.4 gm/dL (32.0-36.5); MCV 89.1 fl (83.0-98.0); MONOCYTE # 0.2 K/uL (0.0-1.0); MONOCYTE % 1.5 %; MPV 9.3 fl (9.4-12.4); NEUTROPHIL # (ANC) 12.8 K/uL (1.4-9.0); NEUTROPHIL % 89.8 %; NRBC % 0 /100WBC (0-0.00); PLATELET COUNT 225 K/uL (150-450); RBC 4.76 M/uL (3.50-5.50); RDW-CV 12.4 % (11.9-14.6); WBC 14.3 K/uL (4.0-11.0)
[2016-08-30 05:28] LABS: ALBUMIN 3.5 gm/dL (3.5-5.0); ANION GAP 14.9 (10.0-19.0); CALCIUM 8.9 mg/dL (8.5-10.5); CREATININE 1.4 mg/dL (0.6-1.3); POTASSIUM 3.9 mMol/L (3.7-5.1); TOTAL BILIRUBIN 1.8 mg/dL (0.0-1.5); TOTAL PROTEIN 6.5 g/dL (6.0-8.4)
--- NOTE | 2016-08-30 12:06 | NUR ---
Significant Event: PT A&Ox3. VSS, on room air. R)groin cath site, dressing changed to band-aid, ecchymotic. PT denies pain. Tolerating cardiac diet. Ambulates with SBA. Fabio consulted for heart cath. Follow up:
[2016-08-30 16:15] LABS: BASOPHIL % 0.2 %; HEMATOCRIT 43.1 % (37.0-53.0); IMMATURE GRANULOCYTE # 0.1 K/uL (0.0-0.3); IMMATURE GRANULOCYTE % 0.5 %; LYMPHOCYTE # 2.2 K/uL (0.8-4.0); LYMPHOCYTE % 11.1 %; MCH 30.9 pg (27.0-34.0); MCHC 34.8 gm/dL (32.0-36.5); MCV 88.7 fl (83.0-98.0); MONOCYTE # 1.8 K/uL (0.0-1.0); MONOCYTE % 9.2 %; MPV 9.2 fl (9.4-12.4); NEUTROPHIL # (ANC) 15.7 K/uL (1.4-9.0); NRBC % 0 /100WBC (0-0.00); PLATELET COUNT 253 K/uL (150-450); RBC 4.86 M/uL (3.50-5.50); RDW-CV 12.6 % (11.9-14.6)
[2016-08-30 16:18] LABS: WBC 19.9 K/uL (4.0-11.0)
[2016-08-30 16:23] LABS: INR - (THERAPEUTIC) 1.05 (0.92-1.07)
--- NOTE | 2016-08-30 17:29 | NUR ---
Significant event: A&Ox3. HR 80's. SBP 120-150's. SR. Lungs clear/dim, on RA. R) groin site CSM WNL, band-aid. Had c/o chest discomfort at 1515, MD notified. Nitro gtt at 5 mcg/min initiated, and heparin gtt initiated. Next ptthp at 2300. No current chest discomfort. Follow UP: To have CABG on .
--- NOTE | 2016-08-31 04:36 | NUR ---
Significant Event: Patient is alert/oriented x3. Vital signs are stable. Nitroglycerin drip turned off at 2305 per patient's request. He has denied chest pain/discomfort throughout the night. Heparin drip continues at 900 units/hr, next PTT-HP to be drawn at 0625. Right groin is slightly ecchymotic with small hematoma, CSM is WNL. Follow up: CABG tomorrow.
[2016-08-31 06:43] LABS: ALBUMIN 3.3 gm/dL (3.5-5.0); ANION GAP 10.9 (10.0-19.0); CALCIUM 8.2 mg/dL (8.5-10.5); CREATININE 1.2 mg/dL (0.6-1.3); PHOSPHORUS 2.4 mg/dL (2.5-4.9); POTASSIUM 3.9 mMol/L (3.7-5.1)
--- NOTE | 2016-08-31 12:00 | NUR ---
I tried to visit with pt today but many visitors. Nursing states very independent and plan for surgery [email or web address]
[2016-08-31 13:16] LABS: BILIRUBIN URINE NEGATIVE (NEGATIVE); BLOOD URINE NEGATIVE /UL (NEGATIVE); COLOR URINE YELLOW (YELLOW); GLUCOSE URINE NEGATIVE (NEGATIVE); KETONE URINE NEGATIVE (NEGATIVE); LEUKOCYTES URINE NEGATIVE /UL (NEGATIVE); NITRITE URINE NEGATIVE (NEGATIVE); PROTEIN URINE NEGATIVE (NEGATIVE); TURBIDITY URINE CLEAR (CLEAR); UROBILINOGEN URINE NORMAL (NORMAL)
[2016-08-31 16:08] LABS: PCO2 33 mmHg (35-45); PO2 72 mmHg (80-90)
--- NOTE | 2016-08-31 16:47 | NUR ---
Significant event: A&Ox3. Up independent in halls. MRSA swab negative. HR 50-60's. SBP 120-130's. Heparin gtt at 900 units/hr, next ptthp is due at 0400, but heparin is to be d/c'd at that time for CABG tomorrow AM. Patient had 3/10 chest discomfort this afternoon for 15 minutes, which resolved when laying down. Colace given today. On room air. Follow Up: Sodium bicarb IV to start at 0000, heparin gtt off at 0400.
[2016-09-01 04:46] LABS: BASOPHIL % 0.2 %; EOSINOPHIL # 0.1 K/uL (0.0-0.5); EOSINOPHIL % 1.4 %; HEMATOCRIT 38.1 % (37.0-53.0); IMMATURE GRANULOCYTE % 0.2 %; LYMPHOCYTE # 2.9 K/uL (0.8-4.0); LYMPHOCYTE % 34.4 %; MCH 30.8 pg (27.0-34.0); MCHC 34.1 gm/dL (32.0-36.5); MCV 90.3 fl (83.0-98.0); MONOCYTE # 0.8 K/uL (0.0-1.0); MONOCYTE % 9.7 %; MPV 9.3 fl (9.4-12.4); NEUTROPHIL # (ANC) 4.6 K/uL (1.4-9.0); NEUTROPHIL % 54.1 %; NRBC % 0 /100WBC (0-0.00); RBC 4.22 M/uL (3.50-5.50); RDW-CV 13.1 % (11.9-14.6); WBC 8.4 K/uL (4.0-11.0)
[2016-09-01 04:48] LABS: PLATELET COUNT 189 K/uL (150-450)
--- NOTE | 2016-09-01 05:42 | NUR ---
Significant Event: Patient alert and oriented x3. Up ad delmy. Vitals stable on room air. IV to left wrist with bicarb that was started at 0000 and heparin was turned off at 0400. Complained of chest discomfort twice both occurred with activity and resolved right away with rest. Patient refused the need for anything during, non-radiating and short lasting. All pre-op orders and meds given. Went down to preop at 0535 Follow up:
[2016-09-01 10:51] LABS: HEMOGLOBIN 8.6 g/dL (11.0-16.0); MCV 93.4 fl (83.0-98.0); MPV 9.1 fl (9.4-12.4); RDW-CV 13.1 % (11.9-14.6); WBC 12.3 K/uL (4.0-11.0)
[2016-09-01 10:53] LABS: HEMATOCRIT 25.6 % (37.0-53.0); MCH 31.4 pg (27.0-34.0); MCHC 33.6 gm/dL (32.0-36.5); PLATELET COUNT 107 K/uL (150-450); RBC 2.74 M/uL (3.50-5.50)
[2016-09-01 11:01] LABS: INR - (THERAPEUTIC) 1.33 (0.92-1.07); PTT 34 SECONDS (25-32)
[2016-09-01 11:35] LABS: ALPHA ANGLE 63 degrees; ALPHA ANGLE 63 degrees (70-81); CLOT FORMATION TIME 147 seconds; CLOTTING TIME 250 seconds; MAXIMUM CLOT FIRMNESS 47 mm; MAXIMUM CLOT FIRMNESS 51 mm (51-72); MAXIMUM LYSIS 0 %
[2016-09-01 11:36] LABS: CLOTTING TIME 73 seconds (43-82)
[2016-09-01 12:32] LABS: BICARBONATE 27.9 mmol/L (18.0-23.0)
[2016-09-01 12:36] LABS: PCO2 45 mmHg (35-45); PO2 101 mmHg (80-90)
[2016-09-01 12:44] LABS: ANION GAP 10.8 (10.0-19.0); BLOOD UREA NITROGEN 15 mg/dL (6-24); CALCIUM 7.9 mg/dL (8.5-10.5); CHLORIDE 110 mMol/L (96-110); CO2 27 mMol/L (22-32); CREATININE 1.1 mg/dL (0.6-1.3); ESTIMATED GFR (MDRD EQUATION) > 60; POTASSIUM 3.8 mMol/L (3.7-5.1); SODIUM 144 mMol/L (135-145)
[2016-09-01 12:53] LABS: BICARBONATE 23.9 mmol/L (18.0-23.0); PCO2 41 mmHg (35-45); PO2 328 mmHg (80-90); POTASSIUM 3.9 mEq/L (3.7-5.1); SODIUM 140 mEq/L (135-145)
[2016-09-01 12:54] LABS: BICARBONATE 28.6 mmol/L (18.0-23.0); PCO2 48 mmHg (35-45); PO2 329 mmHg (80-90); POTASSIUM 5.4 mEq/L (3.7-5.1); SODIUM 138 mEq/L (135-145)
[2016-09-01 12:55] LABS: BICARBONATE 26.3 mmol/L (18.0-23.0); PCO2 50 mmHg (35-45); PO2 232 mmHg (80-90)
[2016-09-01 12:56] LABS: PCO2 52 mmHg (35-45); PO2 364 mmHg (80-90)
[2016-09-01 12:56] LABS: POTASSIUM 5.2 mEq/L (3.7-5.1); SODIUM 139 mEq/L (135-145)
[2016-09-01 12:57] LABS: SODIUM 140 mEq/L (135-145)
[2016-09-01 13:10] LABS: INR - (THERAPEUTIC) 1.1 (0.92-1.07); PROTIME 11.6 SECONDS (9.8-11.4)
--- NOTE | 2016-09-01 17:17 | NUR ---
Significant Event: Patient is A/Ox3, follows all commands. Extubated at 1440 to 4L NC, currently titrated to 2L NC.Slightly coarse-clear auscultated lung sounds. A-Paced @80,ventricular wires capped and taped to chest. Off lissett gtt at 1246. Follow up:
--- NOTE | 2016-09-01 17:44 | NUR ---
D: CABG I: ALB/EZPAP, IS/FV R: PT ARRIVED IN ICU @ 11:56, EXTUBATED PT @ 14:40 TO A 4 LPM NC, WEANED O2 TO 2 LPM, BS C&D IN UPPER LOBES & DIM IN BASES, RAN EZPAP @ 8 TO GET 18 CWP, PT GETS 500-750 ON IS & DOES A GOOD FV, NO OTHER SIGNIFICANT CHANGES T/O DAY P: CONT TO WEAN O2 TOLERATES
[2016-09-02 04:44] LABS: MCH 30.8 pg (27.0-34.0); MCHC 33.9 gm/dL (32.0-36.5); MCV 90.9 fl (83.0-98.0); MPV 10.1 fl (9.4-12.4); RBC 2.53 M/uL (3.50-5.50); RDW-CV 12.6 % (11.9-14.6); WBC 8.7 K/uL (4.0-11.0)
[2016-09-02 04:46] LABS: HEMOGLOBIN 7.8 g/dL (11.0-16.0)
--- NOTE | 2016-09-02 04:52 | NUR ---
Significant Event: PATIENT ALERT AND ORIENTED, FOLLOWS ALL COMMANDS. INTERMITTENT NUMBNESS REPORTED OF LEFT HAND, RELIEVED BY DISCONTINUING ARTLINE. AFEBRILE. CONTINUES TO BE A-PACED AT 80. TITRATING O2, ON 3L PER NASAL CANNULA. CT X3, 550ML OUTPUT. [place] WITH GOOD UOP. NO BM. PT CONCERNED ABOUT CONSTIPATION, SCHEDULED COLACE ORDERED. RIGHT IJ. PIV X2 TO LEFT FOREARM. ENCOURAGED PAIN MEDICATION. Follow up: TRANSFER?
[2016-09-02 04:53] LABS: ANION GAP 10.6 (10.0-19.0); BLOOD UREA NITROGEN 12 mg/dL (6-24); CALCIUM 7.9 mg/dL (8.5-10.5); CHLORIDE 109 mMol/L (96-110); CO2 26 mMol/L (22-32); CREATININE 0.9 mg/dL (0.6-1.3); ESTIMATED GFR (MDRD EQUATION) > 60; POTASSIUM 3.6 mMol/L (3.7-5.1); SODIUM 142 mMol/L (135-145)
[2016-09-02 05:21] LABS: BICARBONATE 28.3 mmol/L (18.0-23.0); PCO2 38 mmHg (35-45); PO2 61 mmHg (80-90)
--- NOTE | 2016-09-02 13:29 | NUR ---
Significant Event: Patient alert/oriented x3. Nausea/vomitting this shift. Received reglan and also zofran this shift. UP ambulating with minimal assist. 2L of oxygen keeps saturations >90%. SBP stable. R) IJ MAC line d/cd. Bath completed. Pacemaker shut off. Follow up:
--- NOTE | 2016-09-02 15:33 | NUR ---
Introduced self and role of care management to pt and . They live here in town in a condo. The house is two levels but he is able to stay on the one. He has a nice recliner with walk in shower and high rise toliet. plans on helping him and at this time plans on home and denies needs. I did also discuss the importance of sternal precautions as well. WIll assist as needed.
--- NOTE | 2016-09-03 05:16 | NUR ---
A/O. HR 70s. SBP 120-130s. 4L NC. AFEBRILE. MEPELEX DRESSING TO STURNAL INCISION. CTx3 WITH 30ML OUT. [place] INTACT 600ML UOP. HARVEST SITES TO R) LEG. PACER WIRES TAPED AND CAPPED. DENIES PAIN. DENIES NAUESA. C/O CONSTIPATION. MOM, PRUNE JUICE AND BUTTER GIVEN THIS AM. SBA TRANSFER. ATIVANx1 FOR INSOMNIA.
[2016-09-03 09:53] LABS: HEMATOCRIT 24.5 % (37.0-53.0); HEMOGLOBIN 8.3 g/dL (11.0-16.0)
--- NOTE | 2016-09-03 11:14 | NUR ---
A - PT SCREENED D/T LOS. S/P CABG. N/V - MEDS GIVEN. 1+ EDEMA. HT: 67" WT: 176# BMI: 27.5. LABS: ACCUCHECK WNL-REAS, K+ 3.6, ALB 3.3, PHOS 2.4, PREALB 33, HGB/HCT 8.3/24.5. MEDS: REGLAN, SSI, KCL, LASIX, BOWEL/NAUSEA, PEPCID. DIET: DIABETIC, 2000 ML FLUID. INTAKE: REF-BITES SINCE CABG. 100% PRIOR TO SX. NEEDS: [id number] KCAL (20-25 KCAL/KG), 64-80 G PRO (0.8-1 G/KG), 2000 ML FLUID PER MD. D - INADEQUATE NUTRIENT INTAKE R/T DECREASED APPETITE S/P CABG AEB INTAKE RECORD. I - GOAL FOR INTAKE > 50% BY NEXT ASSESSMENT. WILL ADD GLUCERNA BID TO INC NUTRIENT INTAKE. WILL PROVIDE DIET ED PRIOR TO DC APPROPRIATE. M/E - WILL MONITOR INTAKE F/U IN 3-4 DAYS.
--- NOTE | 2016-09-03 16:19 | NUR ---
Significant Event: A/Ox3. VSS on 4L. NSR. R) hand and R) FA IVs saline locked. Encouraged insentive spirometry, deep breathing, and coughing. Patient takes shallow breaths at times. Lungs clear/diminished and diminished in the bases. Productive cough. Chest tubes removed, dressing C/D/I. [place] discontinued. pacer off, wires intact. Chest mepilex dressing C/d/i. [place] sites x3 XOCHITL, sutured. R) groin site eccymotic. Up in halls x2. [place] 1 tab x1. Caused nausea so D/c'd and ordered Ultram. ultram given x1 for sternal pain.
--- NOTE | 2016-09-04 05:04 | NUR ---
Significant Event: A/O x3. Afebrile. Denies pain. Titrated O2 to 1Lnc. VSS. HR 70-80s. BP 109-123. Ambulated in [place] x1, tolerated well. Uses sternal precautions. Pleural/mediastinal Dressings c/d/i. Sternum mepilex c/d/i. Pacer wires capped. Rt leg harves sites XOCHITL. Cooperative with cares. Follow up: Continue to monitor per plan of care.
--- NOTE | 2016-09-04 16:43 | NUR ---
Significant Event: VSS, PT AFEBRILE. WEANED OFF 02 WITH SATS IN THE LOW 90'S ON RA. PT UP SEVERAL TIMES TO WALK IN THE HALLWAY AND DOES VERY WELL. NO BM THIS SHIFT, DID GIVE PT SOME PRUNE JUICE. NO CO PAIN OR DISCOMFORT. PT ALERT AND ORIENTED. USES CALL LIGHT APPROPRIATELY. NO CORRECTIONS NEEDED TODAY FOR ACCUCHECKS. Follow up:
--- NOTE | 2016-09-05 04:50 | NUR ---
Significant Event: A/O x3. Afebrile. VSS on RA. SBP 100-120s. HR 70-80s. Gave tylenol 650mg for discomfort. Ambulated in [place] x2. Up standby assist. Cooperative with cares.
[2016-09-05 05:04] LABS: BASOPHIL % 0.3 %; EOSINOPHIL # 0.3 K/uL (0.0-0.5); EOSINOPHIL % 2.3 %; HEMATOCRIT 25.4 % (37.0-53.0); HEMOGLOBIN 8.6 g/dL (11.0-16.0); IMMATURE GRANULOCYTE # 0.1 K/uL (0.0-0.3); IMMATURE GRANULOCYTE % 1.3 %; LYMPHOCYTE % 18.4 %; MCH 31.7 pg (27.0-34.0); MCHC 33.9 gm/dL (32.0-36.5); MCV 93.7 fl (83.0-98.0); MONOCYTE # 1.5 K/uL (0.0-1.0); MONOCYTE % 13.6 %; MPV 9.7 fl (9.4-12.4); NEUTROPHIL # (ANC) 6.9 K/uL (1.4-9.0); NEUTROPHIL % 64.1 %; NRBC % 0.5 /100WBC (0-0.00); RBC 2.71 M/uL (3.50-5.50); RDW-CV 13.8 % (11.9-14.6); WBC 10.7 K/uL (4.0-11.0)
[2016-09-05 05:05] LABS: PLATELET COUNT 223 K/uL (150-450)
[2016-09-05 05:24] LABS: ANION GAP 10.9 (10.0-19.0); BLOOD UREA NITROGEN 14 mg/dL (6-24); CALCIUM 8.1 mg/dL (8.5-10.5); CHLORIDE 109 mMol/L (96-110); CO2 26 mMol/L (22-32); ESTIMATED GFR (MDRD EQUATION) > 60; MAGNESIUM 2.4 mg/dL (1.8-2.6); POTASSIUM 3.9 mMol/L (3.7-5.1); SODIUM 142 mMol/L (135-145)
[2016-09-05] MEDS ORDERED: CORDARONE,PACE200 MG PO (11:47)
[2016-09-05] MEDS ORDERED: LASIX40 MG PO (11:55)
[2016-09-05] MEDS ORDERED: MILK OF MAGN400 ML PO (12:05)
[2016-09-05] MEDS ORDERED: ULTRAM50 MG PO (12:06)
[2016-09-05] MEDS ORDERED: COLACE100 MG PO (12:10)
== END 2016-09-05 14:16 | disposition disaster alternative care site (69) | DRG 232 ==
LOC: GMED 14:02 → GPCU 14:17 → GICU 14:17 → GPCU 16:17 → GICU 17:07 → GPCU 08-30 13:21 → GICU 09-01 09:50 → GPCU 09-02 21:58
PROVIDERS: Anesthesiology; Emergency Medicine; Internal Medicine Interventional Cardiology; Nurse Practitioner Women's Health; Thoracic Surgery (Cardiothoracic Vascular Surgery); ADMIT Internal Medicine Interventional Cardiology
PROC: 3E033PZ Introduction of Platelet Inhibitor into Peripheral Vein, Percutaneous Approach (ICD-10-PCS; 2016-08-29)
PROC: 02703ZZ Dilation of Coronary Artery, One Artery, Percutaneous Approach (ICD-10-PCS; 2016-08-29)
PROC: B2111ZZ Fluoroscopy of Multiple Coronary Arteries using Low Osmolar Contrast (ICD-10-PCS; 2016-08-29)
PROC: 06BP4ZZ Excision of Right Saphenous Vein, Percutaneous Endoscopic Approach (ICD-10-PCS; principal; 2016-09-01)
PROC: 05HY32Z Insertion of Monitoring Device into Upper Vein, Percutaneous Approach (ICD-10-PCS; principal; 2016-09-01)
PROC: 021109W Bypass Coronary Artery, Two Arteries from Aorta with Autologous Venous Tissue, Open Approach (ICD-10-PCS; principal; 2016-09-01)
PROC: 5A1221Z Performance of Cardiac Output, Continuous (ICD-10-PCS; principal; 2016-09-01)
PROC: 02100Z9 Bypass Coronary Artery, One Artery from Left Internal Mammary, Open Approach (ICD-10-PCS; principal; 2016-09-01)
PROC: 03HY32Z Insertion of Monitoring Device into Upper Artery, Percutaneous Approach (ICD-10-PCS; principal; 2016-09-01)
PROC: B24BZZ4 Ultrasonography of Heart with Aorta, Transesophageal (ICD-10-PCS; principal; 2016-09-01)
PROC: 30233M1 Transfusion of Nonautologous Plasma Cryoprecipitate into Peripheral Vein, Percutaneous Approach (ICD-10-PCS; 2016-09-01)
PROC: 30233R1 Transfusion of Nonautologous Platelets into Peripheral Vein, Percutaneous Approach (ICD-10-PCS; 2016-09-01)
DX: I21.19 ST elevation (STEMI) myocardial infarction involving other coronary artery of inferior wall (principal); N17.9 Acute kidney failure, unspecified; D68.32 Hemorrhagic disorder due to extrinsic circulating anticoagulants; Z78.1 Physical restraint status; D62 Acute posthemorrhagic anemia; I10 Essential (primary) hypertension; I25.10 Atherosclerotic heart disease of native coronary artery without angina pectoris; I25.84 Coronary atherosclerosis due to calcified coronary lesion; T45.515A Adverse effect of anticoagulants, initial encounter; E78.5 Hyperlipidemia, unspecified; Z87.891 Personal history of nicotine dependence; K21.9 Gastro-esophageal reflux disease without esophagitis; M15.9 Polyosteoarthritis, unspecified; Z82.49 Family history of ischemic heart disease and other diseases of the circulatory system; Z95.5 Presence of coronary angioplasty implant and graft; Z91.041 Radiographic dye allergy status; Z79.82 Long term (current) use of aspirin
CPT/HCPCS: C1725; C1769; C1874; C1887; J0171; J0282; J0690; J0885; J1200; J1327; J1644; J1650; J1720; J1885; J2150; J2250; J2270; J2405; J2440; J2720; J2765; J2916; J2930; J3010; J3475; J3480; J3490; J7030; J7040; J7050; J7060; J7121; P9012; P9035; P9045; P9047

== ENCOUNTER → 2016-09-20 | Outpatient (CLI) | payer MEDICARE, OTHER ==
[~2016-09-20] MED LIST changes: +ATIVAN 0.5MG0.5 MG PO; +COLACE100 MG PO; +CORDARONE,PACE200 MG PO; +LASIX40 MG PO; +MILK OF MAGN400 ML PO; +OMEGA-31000 MG PO; +POTASSIUM CHLO20 ME1 PO; +ULTRAM50 MG PO; +VITAMIN D-32000 UNI1 PO
[2016-09-20 16:47] LABS: BASOPHIL # 0.1 K/uL (0.0-0.2); BASOPHIL % 0.7 %; EOSINOPHIL # 0.4 K/uL (0.0-0.5); EOSINOPHIL % 4.7 %; HEMOGLOBIN 12.2 g/dL (11.0-16.0); IMMATURE GRANULOCYTE % 0.3 %; LYMPHOCYTE # 2.2 K/uL (0.8-4.0); LYMPHOCYTE % 29.1 %; MCV 94.3 fl (83.0-98.0); MONOCYTE # 0.7 K/uL (0.0-1.0); MONOCYTE % 9.5 %; MPV 8.6 fl (9.4-12.4); NEUTROPHIL # (ANC) 4.2 K/uL (1.4-9.0); NEUTROPHIL % 55.7 %; NRBC % 0 /100WBC (0-0.00); RDW-CV 14.6 % (11.9-14.6); WBC 7.6 K/uL (4.0-11.0)
[2016-09-20 17:03] LABS: ALBUMIN 3.5 gm/dL (3.5-5.0); ANION GAP 12.4 (10.0-19.0); CALCIUM 9.1 mg/dL (8.5-10.5); CREATININE 1.3 mg/dL (0.6-1.3); POTASSIUM 3.4 mMol/L (3.7-5.1)
[2016-09-20 17:05] LABS: HEMATOCRIT 37.9 % (37.0-53.0); MCH 30.3 pg (27.0-34.0); MCHC 32.2 gm/dL (32.0-36.5); PLATELET COUNT 516 K/uL (150-450); RBC 4.02 M/uL (3.50-5.50)
== END | disposition disaster alternative care site (69) ==
LOC: LCNC 15:52
PROVIDERS: Internal Medicine Interventional Cardiology
DX: R53.82 Chronic fatigue, unspecified (principal); I25.10 Atherosclerotic heart disease of native coronary artery without angina pectoris

== ENCOUNTER → 2016-09-20 | Outpatient (CLI) | payer MEDICARE, OTHER | END | disposition disaster alternative care site (69) | LOC: GRAD 14:53 | DX: Z48.812 Encounter for surgical aftercare following surgery on the circulatory system (principal); Z95.1 Presence of aortocoronary bypass graft ==